=== PATIENT | male | born 1980 | race Hispanic/Latino ===

== ENCOUNTER 2023-12-30 16:55 | Emergency (ER) | payer SELFPAY ==
[2023-12-30 17:36] LABS: #Basophils 0.03 10x3/uL (0.0-0.2); %Basophils 0.4 % (0.0-1.0); %Eosinophils 0.4 % (0.0-10.0); %Lymphocytes 18.4 % (21.0-51.0); %Monocytes 4.2 % (0.0-10.0); %Neutrophils 76.2 % (42.0-75.0); Hemoglobin 15.4 g/dL (14.0-18.0); Mean Corpuscular HGB CONC 34.2 g/dL (32.0-36.0); Mean Corpuscular Hemoglobin 30.3 pg (27.0-31.0); Mean Corpuscular Volume 88.4 fL (78.0-98.0); Mean Platelet Volume 9.4 fL (7.4-10.4); Platelet Count 225 10x3/uL (130-400); Red Blood Cell (RBC) Count 5.09 mill/uL (4.70-6.10)
[2023-12-30 17:58] LABS: Troponin I Less than 0.010 ng/mL (< 0.028)
[2023-12-30 18:01] LABS: ALT (SGPT) 27 U/L (8-55); AST (SGOT) 22 U/L (5-34); Albumin 4.1 g/dL (3.5-5.0); Alkaline Phosphatase 100 U/L (40-110); Anion Gap 10 mmol/L (10-20); BUN (Urea Nitrogen) 15 mg/dL (8.9-20.6); Bilirubin, Total 0.4 mg/dL (0.2-1.2); Calc. Creatinine Clearance 0 mL/min (70-130); Calcium 9.2 mg/dL (7.8-10.44); Carbon Dioxide 24 mmol/L (22-29); Chloride 104 mmol/L (98-107); Estimated GFR 86; Globulin 3.4 g/dL (2.4-3.5); Glucose 112 mg/dL (70-105); Lipase 20 U/L (8-78); Potassium 4.2 mmol/L (3.5-5.1); Protein, Total 7.5 g/dL (6.0-8.3)
[2023-12-30 18:05] LABS: Sodium 134 mmol/L (136-145)
[2023-12-30] MEDS ORDERED: Ketorolac Tromethamine 30 MG (1 mL) VIAL ONE (18:20)
== END 2023-12-30 19:00 | disposition home or self-care (01) ==
LOC: ERS 16:55
DX: R07.9 Chest pain, unspecified (principal)
CPT/HCPCS: 36415; 71045; 80053; 83690; 84484; 85025; 93005; 96374; J1885